=== PATIENT | male | born 1995 | race Caucasian/White ===

== ENCOUNTER 2018-11-16 17:05 | Inpatient (IN) | payer MEDICAID, OTHER ==
--- NOTE | 2018-11-16 17:59 | ED ---
Psych HPI - General Chief Complaint: Psychiatric Symptoms Stated Complaint: Mental Health, petition Time Seen by Provider: 11/16/18 17:17 Source: patient Mode of arrival: ambulatory - History of Present Illness Initial Comments: 22-year-old male patient presents to the emergency department today for evaluation of depression and suicidal ideation. Patient states that over the last 2 weeks he has had an increase in suicidal thoughts. Patient has reported feelings of either crashing his car or shooting himself with his grandfather's gun. Patient states that he feels that he has ruined his life. States he is unemployed, has no money, and is not getting an education. Patient states that he was attending [employer] at one time, felt that he was hearing the "voice of God ". Patient then started to become concerned that he may have schizophrenia and that the voices he was hearing had been a lie. States that he came very disillusioned with the synagogue and stopped going. Patient states he did attempt to return however it wasn't the same as it had been in the past. Patient states he's been taking Adderall for several years. Patient believes that he started taking it under false pretenses influenced by his mother, states that he feels very guilty over the decision to start taking. He now feels that he cannot stop taking the medication due to addiction. Patient states that he has made many bad decisions in his life and is making him very depressed. He feels there is no hope to turn his life around. He denies any other street drug use. Denies any alcohol use. Denies any current physical symptoms or concerns. States that he did cut his arm and take 15 Tylenol about a week ago, in order to determine if he was capable of harming himself. Patient denies any official diagnosis of depression. Has never had an inpatient mental health admission in the past. Did speak to someone to set up counseling today, but due to a misunderstanding the police were sent to his home for a well check and brought him here for further evaluation. - Related Data Home Medications Medication Instructions Recorded Confirmed Atomoxetine HCl [Strattera] 40 mg PO DAILY 11/16/18 11/16/18 Sertraline [Zoloft] 50 mg PO DAILY 11/16/18 11/16/18 Allergies Allergy/AdvReac Type Severity Reaction Status Date / Time No Known Allergies Allergy Verified 11/16/18 18:49 Review of Systems ROS Statement: Those systems with pertinent positive or pertinent negative responses have been documented in the HPI. ROS Other: All systems not noted in ROS Statement are negative. Past Medical History Past Medical History: No Reported History History of Any Multi-Drug Resistant Organisms: None Reported Additional Past Surgical History / Comment(s): cervical cyst removal Past Psychological History: ADD/ADHD, Depression Smoking Status: Current every day smoker Past Alcohol Use History: None Reported Past Drug Use History: Marijuana General Exam Limitations: no limitations General appearance: alert, in no apparent distress, other (Physical well- developed, well-nourished adult male patient in no acute distress. Vital signs upon presentation are temperature 98.2F, pulse 99, respirations 18, blood pressure 133/79, pulse ox 99% on room air.) Eye exam: Present: normal appearance, PERRL, EOMI. Absent: scleral icterus, conjunctival injection, periorbital swelling Respiratory exam: Present: normal lung sounds bilaterally. Absent: respiratory distress, wheezes, rales, rhonchi, stridor Cardiovascular Exam: Present: regular rate, normal rhythm, normal heart sounds. Absent: systolic murmur, diastolic murmur, rubs, gallop, clicks Neurological exam: Present: alert, oriented X3, CN II-XII intact Psychiatric exam: Present: depressed, anxious, suicidal ideation, other (Tearful ). Absent: homicidal ideation Skin exam: Present: warm, dry, intact, normal color. Absent: rash Course Vital Signs 11/16/18 17:07 Temperature 98.2 F Pulse Rate 99 Respiratory 18 Rate Blood Pressure 133/79 O2 Sat by Pulse 99 Oximetry Medical Decision Making - Medical Decision Making 22-year-old male patient presents to the emergency department today for evaluation of increased depression, suicidal ideation, hearing voices. Physical examination is unremarkable. Patient was seen and evaluated by emergency psychiatric services. It is felt that he would benefit from inpatient admission at this time. Did sign in voluntarily. He'll be transferred to the mental health unit. - Lab Data Lab Results 11/16/18 Range/Units 18:30 Urine Opiates Screen Not Detected (NotDetected) Ur Oxycodone Screen Not Detected (NotDetected) Urine Methadone Screen Not Detected (NotDetected) Ur Propoxyphene Screen Not Detected (NotDetected) Ur Barbiturates Screen Not Detected (NotDetected) U Tricyclic Antidepress Not Detected (NotDetected) Ur Phencyclidine Scrn Not Detected (NotDetected) Ur Amphetamines Screen Detected H (NotDetected) U Methamphetamines Scrn Not Detected (NotDetected) U Benzodiazepines Scrn Not Detected (NotDetected) Urine Cocaine Screen Not Detected (NotDetected) U Marijuana (THC) Screen Detected H (NotDetected) Disposition Clinical Impression: Suicidal ideation, Depression Disposition: TRANSFER TO PSYCH HOSP/UNIT Condition: Serious Referrals: Ihsan Pederson PAC [REFERRING] - 1-2 days - Out of Hospital Transfer - Req. Specs Out of Hospital Transfer - Requested Specifics: Psychiatric Non-ICU ([facility])
[2018-11-16 18:53] LABS: Amphetamine Screen,Urine Detected (NotDetected); Barbiturate Screen,Urine Not Detected (NotDetected); Benzodiazepines Screen,Urine Not Detected (NotDetected); Cocaine Screen,Urine Not Detected (NotDetected); Methadone Screen, Urine Not Detected (NotDetected); Opiate Screen,Urine Not Detected (NotDetected); Oxycodone Screen, Urine Not Detected (NotDetected); Phencyclidine Screen,Urine Not Detected (NotDetected); Tricyclic Antidepressant,Urine Not Detected (NotDetected); Urn Cannabinoid Scrn Detected (NotDetected)
[2018-11-16] MEDS ORDERED: MAGNESIUM HYDROXIDE 2,400 MG/10 ML CUP PO PRN (21:01)
[2018-11-16] MEDS ORDERED: MAG HYDROX/AL HYDROX/SIMETH 30 ML CUP PO PRN (21:01)
[2018-11-16] MEDS ORDERED: ZIPRASIDONE 20 MG VIAL IM PRN (21:01)
[2018-11-16] MEDS ORDERED: ACETAMINOPHEN TAB 325 MG TAB PO PRN (21:01)
[2018-11-16] MEDS ORDERED: LORazepam 1 MG TAB PO PRN (21:01)
[2018-11-16] MEDS ORDERED: LORazepam 2 MG/ML INJ IM PRN (21:06)
[2018-11-16] MEDS: NICOTINE 7MG/24HR PATCH TRANSDERM SCH (21:16)
--- NOTE | 2018-11-17 07:00 | P.MDCNMH ---
History of Present Illness H&P Date: 11/17/18 Chief Complaint: suicidal ideation 22-year-old male with no significant past medical history except for depression Patient was brought to the hospital due to suicidal ideation and overwhelming depression. He admits that he feels his life is miserable, as he has no money no job and feels that he has no future. He's been expressing suicidal ideation thinking he might be able to crash her car while driving or using his grandfather's gun. He has also attempted to cut himself few days ago over the left forearm. Otherwise he currently denies any physical complaints denies any chest pain or trouble breathing denies any fevers or chills or coughing denies any abdominal pain nausea or vomiting Review of Systems Pertinent positives as noted in HPI. All other systems were reviewed and are negative Past Medical History Past Medical History: No Reported History History of Any Multi-Drug Resistant Organisms: None Reported Additional Past Surgical History / Comment(s): cervical cyst removal Past Psychological History: ADD/ADHD, Depression Smoking Status: Current every day smoker Past Alcohol Use History: None Reported Past Drug Use History: Marijuana Medications and Allergies Home Medications Medication Instructions Recorded Confirmed Type Atomoxetine HCl [Strattera] 40 mg PO DAILY 11/16/18 11/16/18 History Sertraline [Zoloft] 50 mg PO DAILY 11/16/18 11/16/18 History Allergies Allergy/AdvReac Type Severity Reaction Status Date / Time No Known Allergies Allergy Verified 11/16/18 18:49 Physical Exam Vitals: Vital Signs Temp Pulse Pulse Resp BP BP Pulse Ox 11/17/18 06:42 97.6 F 62 16 111/59 11/16/18 21:10 97.6 F 75 16 134/66 11/16/18 20:34 96.9 F L 66 18 134/85 99 11/16/18 17:07 98.2 F 99 18 133/79 99 Intake and Output 11/16/18 11/16/18 11/17/18 14:59 22:59 06:59 Other: Weight 57.5 kg Constitutional: No acute distress, conversant, pleasant Eyes: Anicteric sclerae, moist conjunctiva, no lid-lag Pupils equal round reactive to light ENMT: NC/AT Oropharynx clear, no erythema, or exudates Neck: Supple, FROM, no masses, or JVD No carotid bruits No thyromegaly Lungs: Clear to auscultation Clear to percussion Normal respiratory effort, no accessory muscle use Cardiovascular: Heart regular in rate and rhythm, No murmurs, gallops, or rubs No peripheral edema Abdominal: Soft Nontender, no guarding, rebound or rigidity Abdomen moving with respiration Normoactive bowel sounds No hepatomegaly, No splenomegaly No palpable mass No abdominal wall hernia noted Skin: Superficial abrasions over the left forearm no induration, minimal erythema surrounding it no drainage. Normal temperature, tone, texture, turgor No induration No subcutaneous nodules No rash, lesions No ulcers Extremities: No digital cyanosis No clubbing Pedal pulses intact and symmetrical Radial pulses intact and symmetrical No calf tenderness Psychiatric: Alert and oriented to person, place and time Depressed affect Poor judgement Neuro Muscles Strength 5/5 in all 4 extremities Sensation to light touch grossly present throughout Cranial nerves II-XII grossly intact No focal sensory deficits Lymphatics: no palpable cervical or supraclavicular , or inguinal lymph nodes Cranial Nerve Examination - Cranial Nerves Cranial Nerve II- Optic: Intact Cranial Nerve III- Oculomotor: Intact Cranial Nerve IV- Trochlear: Intact Cranial Nerve V- Trigeminal: Intact Cranial Nerve - Abducens: Intact Cranial Nerve VII- Facial: Intact Cranial Nerve VIII- Auditory: Intact Cranial Nerve IX- Glossopharyngeal: Intact Cranial Nerve X- Vagus: Intact Cranial Nerve XI- Accessory: Intact Cranial Nerve XII- Hypoglossal: Intact Results Labs: Abnormal Lab Results - Last 24 Hours (Table) 11/16/18 Range/Units 18:30 Ur Amphetamines Screen Detected H (NotDetected) U Marijuana (THC) Screen Detected H (NotDetected) Assessment and Plan Assessment: 22-year-old male was brought to the hospital due to suicidal ideation medicine consulted for medical management currently has no physical complaints. Plan: Suicidal ideation Depression Suicide precautions Management per psych Tobacco smoking Counseled to quit smoking Nicotine replacement therapy Patient low risk for DVT, patient is ambulatory Thank you for allowing us to participate in the care of this patient. We will follow peripherally. Do not hesitate to contact us with questions. Someone can be reached from the [facility] hospitalist group at all hours of the day at [phone].
[2018-11-17 08:52] LABS: Basophils # (A) 0.1 k/uL (0-0.2); Basophils % (A) 1 %; Eosinophils # (A) 0.2 k/uL (0-0.7); Eosinophils % (A) 3 %; Lymphocytes % (A) 49 %; MCH 30.7 pg (25.0-35.0); MCHC 33.3 g/dL (31.0-37.0); MCV 92.1 fL (80.0-100.0); Mean Platelet Volume 6.9; Monocytes # (A) 0.4 k/uL (0-1.0); Monocytes % (A) 7 %; Neutrophils # (A) 2.3 k/uL (1.3-7.7); Neutrophils % (A) 37 %; Platelet Count 258 k/uL (150-450); RBC 4.88 m/uL (4.30-5.90); WBC 6.2 k/uL (3.8-10.6)
[2018-11-17] MEDS: NICOTINE 7MG/24HR PATCH TRANSDERM SCH (09:01)
[2018-11-17 09:39] VITALS: BMI 18.7
[2018-11-17 09:40] LABS: ALT 32 U/L (21-72); AST 24 U/L (17-59); Albumin 4.3 g/dL (3.5-5.0); Alkaline Phosphatase 52 U/L (38-126); Anion Gap 8 mmol/L; Bilirubin, Delta 0.3 mg/dL (0.0-0.2); Bilirubin,Unconjugated 3.2 mg/dL (0.0-1.1); Blood Urea Nitrogen 11 mg/dL (9-20); Calcium 10.1 mg/dL (8.4-10.2); Carbon Dioxide 28 mmol/L (22-30); Chloride 105 mmol/L (98-107); Cholesterol 130 mg/dL (<200); Glucose 87 mg/dL (74-99); HDL Cholesterol 50 mg/dL (40-60); LDL Cholesterol,Calculated 73 mg/dL (0-99); Potassium 4.4 mmol/L (3.5-5.1); Sodium 141 mmol/L (137-145); Total Bilirubin 3.5 mg/dL (0.2-1.3); Total Protein 7.1 g/dL (6.3-8.2); Triglycerides 33 mg/dL (<150)
--- NOTE | 2018-11-17 13:35 | P.HP ---
Psychiatric H&P - . H&P Date: 11/17/18 History & Physical: Allergies Allergy/AdvReac Type Severity Reaction Status Date / Time No Known Allergies Allergy Verified 11/16/18 18:49 Vital Signs Temp 97.6 F 11/17/18 06:42 Pulse 62 11/17/18 06:42 Resp 16 11/17/18 06:42 BP 111/59 11/17/18 06:42 Pulse Ox 99 11/16/18 20:34 Intake & Output 11/16/18 11/17/18 11/17/18 18:59 06:59 18:59 Weight 131.3 kg 57.5 kg Laboratory Last Values WBC 6.2 k/uL (3.8-10.6) 11/17/18 08:13 RBC 4.88 m/uL (4.30-5.90) 11/17/18 08:13 Hgb 15.0 gm/dL (13.0-17.5) 11/17/18 08:13 Hct 45.0 % (39.0-53.0) 11/17/18 08:13 MCV 92.1 fL (80.0-100.0) 11/17/18 08:13 MCH 30.7 pg (25.0-35.0) 11/17/18 08:13 MCHC 33.3 g/dL (31.0-37.0) 11/17/18 08:13 RDW 12.0 % (11.5-15.5) 11/17/18 08:13 Plt Count 258 k/uL (150-450) 11/17/18 08:13 Neutrophils % 37 % 11/17/18 08:13 Lymphocytes % 49 % 11/17/18 08:13 Monocytes % 7 % 11/17/18 08:13 Eosinophils % 3 % 11/17/18 08:13 Basophils % 1 % 11/17/18 08:13 Neutrophils # 2.3 k/uL (1.3-7.7) 11/17/18 08:13 Lymphocytes # 3.0 k/uL (1.0-4.8) 11/17/18 08:13 Monocytes # 0.4 k/uL (0-1.0) 11/17/18 08:13 Eosinophils # 0.2 k/uL (0-0.7) 11/17/18 08:13 Basophils # 0.1 k/uL (0-0.2) 11/17/18 08:13 Urine Opiates Screen Not Detected (NotDetected) 11/16/18 18:30 Ur Oxycodone Screen Not Detected (NotDetected) 11/16/18 18:30 Urine Methadone Screen Not Detected (NotDetected) 11/16/18 18:30 Ur Propoxyphene Screen Not Detected (NotDetected) 11/16/18 18:30 Ur Barbiturates Screen Not Detected (NotDetected) 11/16/18 18:30 U Tricyclic Antidepress Not Detected (NotDetected) 11/16/18 18:30 Ur Phencyclidine Scrn Not Detected (NotDetected) 11/16/18 18:30 Ur Amphetamines Screen Detected (NotDetected) H 11/16/18 18:30 U Methamphetamines Scrn Not Detected (NotDetected) 11/16/18 18:30 U Benzodiazepines Scrn Not Detected (NotDetected) 11/16/18 18:30 Urine Cocaine Screen Not Detected (NotDetected) 11/16/18 18:30 U Marijuana (THC) Screen Detected (NotDetected) H 11/16/18 18:30 Assessment and Plan Assessment: 22-year-old male patient presents to the emergency department today for evaluation of depression and suicidal ideation. Patient states that over the last 2 weeks he has had an increase in suicidal thoughts. Patient has reported feelings of either crashing his car or shooting himself with his grandfather's gun. Patient states that he feels that he has ruined his life. States he is unemployed, has no money, and is not getting an education. Patient states that he was attending [employer] at one time, felt that he was hearing the "voice of God ". Patient then started to become concerned that he may have schizophrenia and that the voices he was hearing had been a lie. States that he came very disillusioned with the [employer] and stopped going. Patient states he did attempt to return however it wasn't the same as it had been in the past. Patient states he's been taking Adderall for several years. Patient believes that he started taking it under false pretenses influenced by his mother, states that he feels very guilty over the decision to start taking. He now feels that he cannot stop taking the medication due to addiction. Patient states that he has made many bad decisions in his life and is making him very depressed. He feels there is no hope to turn his life around. He denies any other street drug use. Denies any alcohol use. Denies any current physical symptoms or concerns. States that he did cut his arm and take 15 Tylenol about a week ago, in order to determine if he was capable of harming himself. Patient denies any official diagnosis of depression. Has never had an inpatient mental health admission in the past. Did speak to someone to set up counseling today, but due to a misunderstanding the police were sent to his home for a well check and brought him here for further evaluation. - Related Data Home Medications Medication Instructions Recorded Confirmed Atomoxetine HCl [Strattera] 40 mg PO DAILY 11/16/18 11/16/18 Sertraline [Zoloft] 50 mg PO DAILY 11/16/18 11/16/18 Allergies Allergy/AdvReac Type Severity Reaction Status Date / Time No Known Allergies Allergy Verified 11/16/18 18:49 Past Medical History Past Medical History: No Reported History History of Any Multi-Drug Resistant Organisms: None Reported Additional Past Surgical History / Comment(s): cervical cyst removal Past Psychological History: ADD/ADHD, Depression Smoking Status: Current every day smoker Past Alcohol Use History: None Reported Past Drug Use History: Marijuana Developmental history and substance abuse: This is a 22-year-old single male who was raised mainly by his mother after divorce and father who is a chiropractor had a TBI after car accident and at age 4 mother and father . His father moved to [facility] for employment and the patient was mainly raised by mother and older brother with grandparents being involved due to lack of income. His mother had taken her 's medication became addicted to narcotics and end up in substance abuse treatment. There is little nurturing occurring in this man's life. He feels abandonment by his father and loss of nurturing. He states his older brother is caustic at times and tends to isolate himself. His mother was concerned about him on 11/16/2018 and had called various places for help whereupon he admitted that he had suicidal ideation. When the help line callback to talk to him he did not answer the phone twice and the police were called to bring him in for psychiatric evaluation. His brother and himself uses marijuana on a regular routine but does not enjoy. At 10th grade he was able to do home schooling via the high school program computer system and when he returned to school in the 11th grade at a [employer] more credit hours catching up to be an 11th grader. He had to do some alternative education to be able to graduate. He has attended upon community college and end up not doing well in dropping out. Of recent past he has moved into a friend's home renting a room whereby defended himself in the interview and altercation and at the same time his mother called him and told him that grandfather would have to go back to work as an have enough money. 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 He feels overwhelmed and hopeless helpless and confused about what path to take an life since she's had no role modeling. It appears that mother made him a codependent. He does smoke cigarettes as well but wants to quit smoking and quit smoking marijuana. Musculoskeletal Examination - Abnormal/Involuntary Movements: [none] Strength: [greater than antigravity (greater than/equal to 3/5) in all extremities] Muscle Tone: [no impairment] Gait: [grossly normal Station: [grossly normal Mental Status Examination - General Appearance: [ casual, appears stated age Speech/Language: [ slow, hesitant, soft] Attitude/Behavior: [ guarded, withdrawn] Mood: [depressed 10 out of 10, anxious 6 out of 10, hopelessness, overwhelmed] Affect: [ flat,blunted constricted Orientation: [time, person, place situation] Thought Content: [wnl Risk Factors: [Admits to suicidal (ideations, plan), but not Homicidal ( ideations, plan), other] Perception: [wnl, denies hallucinations (auditory, visual, tactile) Thought Processes: [ concrete, circumstantial, tangential] Concentration/Attention Span: [ impaired] [Per observation and interview with the patient] Recent Memory: [wnl Remote Memory: [wnl] [past events, as related history] Intelligence: [ average] [based on history, based on vocabulary, syntax, grammar , and content] Judgement: [ fair] [per patient's behavior/history of present illness] Insight: [ fair] [understanding severity of illness/history of present illness] Admitting Diagnosis: [Major depressive disorder with suicidal ideation acute severe in nature; amphetamine use disorder] Patient Strengths - Housing stability: [x] Able to vocalize needs: [x] Motivation, determination, readiness for change: [x] Setting and pursuing goals, hopes, dreams, aspirations: [x] Patient Limitations: [ pathological/unsupported environment, lack of social supports Initial Plan of Care: [He is admitted formal voluntary for mental health treatment [facility]. He will be evaluated by medicine, psychiatry, nursing staff, social work and occupational therapy. He will be placed in [facility] therapeutic environment with usual protocol including 15 minute checks for safety. He'll be expected to speak groups which he is already done. A thorough biopsychosocial evaluation be completed and as outlined above several factors including nurture nature and has been discovered. He will be placed on Effexor 37.5 mgXR and Lamictal 25 mg by mouth daily at bedtime due to the fact that he does have racing thoughts and mood instability. We discussed the benefit registration of medications and the benefit of being in PSYCHOTHERAPEUTIC [facility] environment.] Estimated Length of Stay: [7 days] Initial Discharge Plan: [home[facility], referred to therapist, partial hospital, intensive outpatient, residential placement, other] Prognosis: [good, fair, guarded] Justification for Inpatient Hospitalization - [ anxiety, depression resulting in significant loss of functioning.] [Dangerous to self with need for controlled environment.] [Emotional or behavioral conditions and complications requiring 24 hour medical and nursing care.] [Need for special drug therapy, or other therapeutic program requiring continuous hospitalization.] [Failure of social or occupational functioning.] [Recovery environment includes detrimental family structure, logical impediments to out-patient treatment.] (1) Major depressive disorder with current active episode Current Visit: Yes Status: Acute Priority: High Code(s): F32.9 - MAJOR DEPRESSIVE DISORDER, SINGLE EPISODE, UNSPECIFIED SNOMED Code(s): 786032220 Time with Patient: Greater than 30
[2018-11-17 18:56] LABS: Hemoglobin A1C 4.9 % (4.0-6.0)
[2018-11-17] MEDS ORDERED: lamoTRIgine 25 MG TAB PO SCH (21:00)
[2018-11-17] MEDS ORDERED: VENLAFAXINE HCL ER 37.5 MG CAP PO SCH (21:00)
[2018-11-18] MEDS: NICOTINE 7MG/24HR PATCH TRANSDERM SCH (08:12)
--- NOTE | 2018-11-18 12:42 | P.PN ---
Subjective Progress Note Date: 11/18/18 Principal diagnosis: Major depressive disorder with suicidal ideation acutesevere in nature Chart reviewed and discussed with nursing staff and team this morning. Patient was interviewed and office and described that he slept last night better than he has before that he has less suicidal thoughts but his depression is still 7 out of 10 with anxiety 5 out of 10. He is heard no voices nor has he seen anything. He has no homicidal ideation. Objective - Vital Signs Vital signs: Vital Signs Temp 98 F 11/18/18 06:46 Pulse 55 L 11/18/18 06:46 Resp 16 11/18/18 06:46 BP 107/55 11/18/18 06:46 Pulse Ox 99 11/16/18 20:34 Intake & Output 11/17/18 11/18/18 11/18/18 18:59 06:59 18:59 Weight 57.8 kg - Labs CBC & Chem 7: 11/17/18 08:13 11/17/18 08:13 Assessment and Plan Assessment: 22-year-old male patient presents to the emergency department today for evaluation of depression and suicidal ideation. Patient states that over the last 2 weeks he has had an increase in suicidal thoughts. Patient has reported feelings of either crashing his car or shooting himself with his grandfather's gun. Patient states that he feels that he has ruined his life. States he is unemployed, has no money, and is not getting an education. Patient states that he was attending jainism at one time, felt that he was hearing the "voice of God ". Patient then started to become concerned that he may have schizophrenia and that the voices he was hearing had been a lie. States that he came very disillusioned with the jainism and stopped going. Patient states he did attempt to return however it wasn't the same as it had been in the past. Patient states he's been taking Adderall for several years. Patient believes that he started taking it under false pretenses influenced by his mother, states that he feels very guilty over the decision to start taking. He now feels that he cannot stop taking the medication due to addiction. Patient states that he has made many bad decisions in his life and is making him very depressed. He feels there is no hope to turn his life around. He denies any other street drug use. Denies any alcohol use. Denies any current physical symptoms or concerns. States that he did cut his arm and take 15 Tylenol about a week ago, in order to determine if he was capable of harming himself. Patient denies any official diagnosis of depression. Has never had an inpatient mental health admission in the past. Did speak to someone to set up counseling today, but due to a misunderstanding the police were sent to his home for a well check and brought him here for further evaluation. Developmental history and substance abuse: This is a 22-year-old single male who was raised mainly by his mother after divorce and father who is a chiropractor had a TBI after car accident and at age 4 mother and father . His father moved to [facility] for employment and the patient was mainly raised by mother and older brother with grandparents being involved due to lack of income. His mother had taken her 's medication became addicted to narcotics and end up in substance abuse treatment. There is little nurturing occurring in this man's life. He feels abandonment by his father and loss of nurturing. He states his older brother is caustic at times and tends to isolate himself. His mother was concerned about him on 11/16/2018 and had called various places for help whereupon he admitted that he had suicidal ideation. When the help line callback to talk to him he did not answer the phone twice and the police were called to bring him in for psychiatric evaluation. His brother and himself uses marijuana on a regular routine but does not enjoy. At 10th grade he was able to do home schooling via the high school program computer system and when he returned to school in the 11th grade at a [employer] more credit hours catching up to be an 11th grader. He had to do some alternative education to be able to graduate. He has attended upon community college and end up not doing well in dropping out. Of recent past he has moved into a friend's home renting a room whereby defended himself in the interview and altercation and at the same time his mother called him and told him that grandfather would have to go back to work as an have enough money. 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 He feels overwhelmed and hopeless helpless and confused about what path to take an life since she's had no role modeling. It appears that mother made him a codependent. He does smoke cigarettes as well but wants to quit smoking and quit smoking marijuana. Mental Status Examination - General Appearance: [ casual, appears stated age Speech/Language: [ slow, hesitant, soft] Attitude/Behavior: [ guarded, withdrawn] Mood: [depressed 7 out of 10, anxious 6 out of 10, hopelessness, overwhelmed] Affect: [ flat,blunted constricted Orientation: [time, person, place situation] Thought Content: [wnl Risk Factors: [Admits to suicidal (ideations, plan), but not Homicidal ( ideations, plan), other] Perception: [wnl, denies hallucinations (auditory, visual, tactile) Thought Processes: [ concrete, circumstantial, tangential] Concentration/Attention Span: [ impaired] [Per observation and interview with the patient] Recent Memory: [wnl Remote Memory: [wnl] [past events, as related history] Intelligence: [ average] [based on history, based on vocabulary, syntax, grammar , and content] Judgement: [ fair] [per patient's behavior/history of present illness] Insight: [ fair] [understanding severity of illness/history of present illness] Admitting Diagnosis: [Major depressive disorder with suicidal ideation acute severe in nature; amphetamine use disorder] Initial Plan of Care: [He is admitted formal voluntary for mental health treatment 3 [facility]. He will be evaluated by medicine, psychiatry, nursing staff, social work and occupational therapy. He will be placed in barrera milieu therapeutic environment with usual protocol including 15 minute checks for safety. He'll be expected to speak groups which he is already done. A thorough biopsychosocial evaluation be completed and as outlined above several factors including nurture nature and has been discovered. He will be placed on Effexor 37.5 mgXR and Lamictal 25 mg by mouth daily at bedtime due to the fact that he does have racing thoughts and mood instability. We discussed the benefit registration of medications and the benefit of being in PSYCHOTHERAPEUTIC barrera milieu environment. 11/18/2018: After discussion with him regarding his medications benefit risk ratio we talked about raising his Effexor 75 mgXR tonight and increasing his Lamictal to 50 mg by mouth daily at bedtime. He still remains on 15 minute checks for safety and usual barrera milieu therapeutic environment. He's been able to go to groups today and appears engaged in the barrera milieu therapeutic environment.] (1) Major depressive disorder with current active episode Current Visit: Yes Status: Acute Priority: High Code(s): F32.9 - MAJOR DEPRESSIVE DISORDER, SINGLE EPISODE, UNSPECIFIED SNOMED Code(s): 934925806 Time with Patient: Less than 30
[2018-11-18] MEDS ORDERED: VENLAFAXINE HCL ER 75 MG CAP PO SCH (21:00)
[2018-11-18] MEDS ORDERED: lamoTRIgine 25 MG TAB PO SCH (21:00)
[2018-11-19] MEDS: NICOTINE 7MG/24HR PATCH TRANSDERM SCH (10:18)
--- NOTE | 2018-11-19 11:45 | P.PN ---
Subjective Progress Note Date: 11/19/18 Principal diagnosis: Major depressive disorder with suicidal ideation acutesevere in nature Chart reviewed and discussed with nursing staff and team this morning. Patient was interviewed and office and described that he slept last night better than he has before that he has less suicidal thoughts but his depression is still 7 out of 10 with anxiety 5 out of 10. He is heard no voices nor has he seen anything. He has no homicidal ideation. 11/19/2018: Chart review and discussed with nursing staff today. Patient interviewed and he described his mood is improving and is learning a great deal by being in groups. He has less suicidal thoughts and his depression as 6 out of 10 with anxiety remaining 5 out of 10. He has heard no voices or has he seen anything. He has no homicidal ideation. Objective - Vital Signs Vital signs: Vital Signs Temp 97.9 F 11/19/18 06:39 Pulse 67 11/19/18 06:39 Resp 16 11/19/18 06:39 BP 124/62 11/19/18 06:39 Pulse Ox 99 11/16/18 20:34 - Labs CBC & Chem 7: 11/17/18 08:13 11/17/18 08:13 Assessment and Plan Assessment: 22-year-old male patient presents to the emergency department today for evaluation of depression and suicidal ideation. Patient states that over the last 2 weeks he has had an increase in suicidal thoughts. Patient has reported feelings of either crashing his car or shooting himself with his grandfather's gun. Patient states that he feels that he has ruined his life. States he is unemployed, has no money, and is not getting an education. Patient states that he was attending scientology at one time, felt that he was hearing the "voice of God ". Patient then started to become concerned that he may have schizophrenia and that the voices he was hearing had been a lie. States that he came very disillusioned with the scientology and stopped going. Patient states he did attempt to return however it wasn't the same as it had been in the past. Patient states he's been taking Adderall for several years. Patient believes that he started taking it under false pretenses influenced by his mother, states that he feels very guilty over the decision to start taking. He now feels that he cannot stop taking the medication due to addiction. Patient states that he has made many bad decisions in his life and is making him very depressed. He feels there is no hope to turn his life around. He denies any other street drug use. Denies any alcohol use. Denies any current physical symptoms or concerns. States that he did cut his arm and take 15 Tylenol about a week ago, in order to determine if he was capable of harming himself. Patient denies any official diagnosis of depression. Has never had an inpatient mental health admission in the past. Did speak to someone to set up counseling today, but due to a misunderstanding the police were sent to his home for a well check and brought him here for further evaluation. Developmental history and substance abuse: This is a 22-year-old single male who was raised mainly by his mother after divorce and father who is a chiropractor had a TBI after car accident and at age 4 mother and father . His father moved to [facility] for employment and the patient was mainly raised by mother and older brother with grandparents being involved due to lack of income. His mother had taken her 's medication became addicted to narcotics and end up in substance abuse treatment. There is little nurturing occurring in this man's life. He feels abandonment by his father and loss of nurturing. He states his older brother is caustic at times and tends to isolate himself. His mother was concerned about him on 11/16/2018 and had called various places for help whereupon he admitted that he had suicidal ideation. When the help line callback to talk to him he did not answer the phone twice and the police were called to bring him in for psychiatric evaluation. His brother and himself uses marijuana on a regular routine but does not enjoy. At 10th grade he was able to do home schooling via the high school program computer system and when he returned to school in the 11th grade at a [employer] more credit hours catching up to be an 11th grader. He had to do some alternative education to be able to graduate. He has attended upon community college and end up not doing well in dropping out. Of recent past he has moved into a friend's home renting a room whereby defended himself in the interview and altercation and at the same time his mother called him and told him that grandfather would have to go back to work as an have enough money. 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 He feels overwhelmed and hopeless helpless and confused about what path to take an life since she's had no role modeling. It appears that mother made him a codependent. He does smoke cigarettes as well but wants to quit smoking and quit smoking marijuana. Mental Status Examination - General Appearance: [ casual, appears stated age Speech/Language: [ slow, soft] Attitude/Behavior: [ guarded, withdrawn] Mood: [depressed 7 out of 10, anxious 6 out of 10, hopelessness, overwhelmed] Affect: [ flat,blunted constricted Orientation: [time, person, place situation] Thought Content: [wnl Risk Factors: [Admits to suicidal (ideations, plan), but not Homicidal ( ideations, plan), other] Perception: [wnl, denies hallucinations (auditory, visual, tactile) Thought Processes: [ concrete, circumstantial, tangential] Concentration/Attention Span: [ impaired] [Per observation and interview with the patient] Recent Memory: [wnl Remote Memory: [wnl] [past events, as related history] Intelligence: [ average] [based on history, based on vocabulary, syntax, grammar , and content] Judgement: [ fair] [per patient's behavior/history of present illness] Insight: [ fair] [understanding severity of illness/history of present illness] Admitting Diagnosis: [Major depressive disorder with suicidal ideation acute severe in nature; amphetamine use disorder] Initial Plan of Care: [He is admitted formal voluntary for mental health treatment 3 [facility]. He will be evaluated by medicine, psychiatry, nursing staff, social work and occupational therapy. He will be placed in barrera milieu therapeutic environment with usual protocol including 15 minute checks for safety. He'll be expected to speak groups which he is already done. A thorough biopsychosocial evaluation be completed and as outlined above several factors including nurture nature and has been discovered. He will be placed on Effexor 37.5 mgXR and Lamictal 25 mg by mouth daily at bedtime due to the fact that he does have racing thoughts and mood instability. We discussed the benefit registration of medications and the benefit of being in PSYCHOTHERAPEUTIC barrera milieu environment. 11/18/2018: After discussion with him regarding his medications benefit risk ratio we talked about raising his Effexor 75 mgXR tonight and increasing his Lamictal to 50 mg by mouth daily at bedtime. He still remains on 15 minute checks for safety and usual barrera milieu therapeutic environment. He's been able to go to groups today and appears engaged in the barrera milieu therapeutic environment. 11/19/2018: Will increase his Lamictal to 75 mg by mouth daily at bedtime and remain on 15 minute checks and usual barrera milieu therapeutic environment. His Effexor will be increased to 150 mgXR at bedtime will follow up and observe.] (1) Major depressive disorder with current active episode Current Visit: Yes Status: Acute Priority: High Code(s): F32.9 - MAJOR DEPRESSIVE DISORDER, SINGLE EPISODE, UNSPECIFIED SNOMED Code(s): 585033567 Time with Patient: Less than 30
[2018-11-19] MEDS: VENLAFAXINE HCL ER 150 MG CAP PO SCH (20:54)
[2018-11-19] MEDS: lamoTRIgine 25 MG TAB PO SCH (20:54)
[2018-11-20] MEDS: NICOTINE 7MG/24HR PATCH TRANSDERM SCH (08:29)
--- NOTE | 2018-11-20 12:36 | P.PN ---
Subjective Progress Note Date: 11/20/18 Principal diagnosis: Major depressive disorder with suicidal ideation acutesevere in nature Chart reviewed and discussed with nursing staff and team this morning. Patient was interviewed and office and described that he slept last night better than he has before that he has less suicidal thoughts but his depression is still 7 out of 10 with anxiety 5 out of 10. He is heard no voices nor has he seen anything. He has no homicidal ideation. 11/19/2018: Chart review and discussed with nursing staff today. Patient interviewed and he described his mood is improving and is learning a great deal by being in groups. He has less suicidal thoughts and his depression as 6 out of 10 with anxiety remaining 5 out of 10. He has heard no voices or has he seen anything. He has no homicidal ideation. 11/20/2018: Reviewed with nursing staff today and review of chart. Patient interviewed and he describes his mood getting improving with his depression 5 out of 10 and occasional thoughts of suicide. He has no thoughts of homicide. He does not hear any voices. He remains on 15 minute checks on the barrera for safety and understands why they check on him. Objective - Vital Signs Vital signs: Vital Signs Temp 98.0 F 11/20/18 06:22 Pulse 74 11/20/18 06:22 Resp 18 11/20/18 06:22 BP 117/56 11/20/18 06:22 Pulse Ox 99 11/16/18 20:34 Intake & Output 11/19/18 11/20/18 11/20/18 18:59 06:59 18:59 Weight 59.5 kg - Labs CBC & Chem 7: 11/17/18 08:13 11/17/18 08:13 Assessment and Plan Assessment: 22-year-old male patient presents to the emergency department today for evaluation of depression and suicidal ideation. Patient states that over the last 2 weeks he has had an increase in suicidal thoughts. Patient has reported feelings of either crashing his car or shooting himself with his grandfather's gun. Patient states that he feels that he has ruined his life. States he is unemployed, has no money, and is not getting an education. Patient states that he was attending orthodoxy at one time, felt that he was hearing the "voice of God ". Patient then started to become concerned that he may have schizophrenia and that the voices he was hearing had been a lie. States that he came very disillusioned with the orthodoxy and stopped going. Patient states he did attempt to return however it wasn't the same as it had been in the past. Patient states he's been taking Adderall for several years. Patient believes that he started taking it under false pretenses influenced by his mother, states that he feels very guilty over the decision to start taking. He now feels that he cannot stop taking the medication due to addiction. Patient states that he has made many bad decisions in his life and is making him very depressed. He feels there is no hope to turn his life around. He denies any other street drug use. Denies any alcohol use. Denies any current physical symptoms or concerns. States that he did cut his arm and take 15 Tylenol about a week ago, in order to determine if he was capable of harming himself. Patient denies any official diagnosis of depression. Has never had an inpatient mental health admission in the past. Did speak to someone to set up counseling today, but due to a misunderstanding the police were sent to his home for a well check and brought him here for further evaluation. Developmental history and substance abuse: This is a 22-year-old single male who was raised mainly by his mother after divorce and father who is a chiropractor had a TBI after car accident and at age 4 mother and father . His father moved to [facility] for employment and the patient was mainly raised by mother and older brother with grandparents being involved due to lack of income. His mother had taken her 's medication became addicted to narcotics and end up in substance abuse treatment. There is little nurturing occurring in this man's life. He feels abandonment by his father and loss of nurturing. He states his older brother is caustic at times and tends to isolate himself. His mother was concerned about him on 11/16/2018 and had called various places for help whereupon he admitted that he had suicidal ideation. When the help line callback to talk to him he did not answer the phone twice and the police were called to bring him in for psychiatric evaluation. His brother and himself uses marijuana on a regular routine but does not enjoy. At 10th grade he was able to do home schooling via the high school program computer system and when he returned to school in the 11th grade at a [employer] more credit hours catching up to be an 11th grader. He had to do some alternative education to be able to graduate. He has attended upon community college and end up not doing well in dropping out. Of recent past he has moved into a friend's home renting a room whereby defended himself in the interview and altercation and at the same time his mother called him and told him that grandfather would have to go back to work as an have enough money. 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 He feels overwhelmed and hopeless helpless and confused about what path to take an life since she's had no role modeling. It appears that mother made him a codependent. He does smoke cigarettes as well but wants to quit smoking and quit smoking marijuana. Mental Status Examination - General Appearance: [ casual, appears stated age Speech/Language: [ slow, soft] Attitude/Behavior: [ guarded, withdrawn] Mood: [depressed 6 out of 10, anxious 5 out of 10, hopelessness, overwhelmed] Affect: [ flat,blunted constricted Orientation: [time, person, place situation] Thought Content: [wnl Risk Factors: [Admits to last suicidal (ideations, plan), but not Homicidal ( ideations, plan), other] Perception: [wnl, denies hallucinations (auditory, visual, tactile) Thought Processes: [ concrete, circumstantial, tangential] Concentration/Attention Span: [ impaired] [Per observation and interview with the patient] Recent Memory: [wnl Remote Memory: [wnl] [past events, as related history] Intelligence: [ average] [based on history, based on vocabulary, syntax, grammar , and content] Judgement: [ fair] [per patient's behavior/history of present illness] Insight: [ fair] [understanding severity of illness/history of present illness] Admitting Diagnosis: [Major depressive disorder with suicidal ideation acute severe in nature; amphetamine use disorder] Initial Plan of Care: [He is admitted formal voluntary for mental health treatment [address] [place] [address]. He will be evaluated by medicine, psychiatry, nursing staff, social work and occupational therapy. He will be placed in barrera milieu therapeutic environment with usual protocol including 15 minute checks for safety. He'll be expected to speak groups which he is already done. A thorough biopsychosocial evaluation be completed and as outlined above several factors including nurture nature and has been discovered. He will be placed on Effexor 37.5 mgXR and Lamictal 25 mg by mouth daily at bedtime due to the fact that he does have racing thoughts and mood instability. We discussed the benefit registration of medications and the benefit of being in PSYCHOTHERAPEUTIC barrera milieu environment. 11/18/2018: After discussion with him regarding his medications benefit risk ratio we talked about raising his Effexor 75 mgXR tonight and increasing his Lamictal to 50 mg by mouth daily at bedtime. He still remains on 15 minute checks for safety and usual barrera milieu therapeutic environment. He's been able to go to groups today and appears engaged in the barrera milieu therapeutic environment. 11/19/2018: Will increase his Lamictal to 75 mg by mouth daily at bedtime and remain on 15 minute checks and usual barrera milieu therapeutic environment. His Effexor will be increased to 150 mgXR at bedtime will follow up and observe. 11/20/2018: Will increase his Lamictal 200 mg by mouth daily at bedtime tonight and remains on 15 minute checks and usual therapeutic barrera environment. His Effexor will state 150 mg XR tonight and we'll reevaluate his depression tomorrow for titration to resolution of his symptoms.] (1) Major depressive disorder with current active episode Current Visit: Yes Status: Acute Priority: High Code(s): F32.9 - MAJOR DEPRESSIVE DISORDER, SINGLE EPISODE, UNSPECIFIED SNOMED Code(s): 766734908 Time with Patient: Less than 30
[2018-11-20 12:39] LABS: Amorphous Sediment,Urine Moderate /hpf; Appearance,Urine Cloudy (Clear); Bilirubin,Urine Negative (Negative); Blood,Urine Negative (Negative); Color,Urine Yellow; Glucose,Urine (UA) Negative (Negative); Ketones,Urine Negative (Negative); Leukocyte Esterase,Urine Negative (Negative); Mucus,Urine Rare /hpf; Nitrite,Urine Negative (Negative); Protein,Urine Negative (Negative); Specific Gravity,Urine 1.013 (1.001-1.035); Urobilinogen,Urine <2.0 mg/dL (<2.0)
[2018-11-20] MEDS: lamoTRIgine 25 MG TAB PO SCH (20:15)
[2018-11-20] MEDS: VENLAFAXINE HCL ER 150 MG CAP PO SCH (20:16)
[2018-11-21 06:43] VITALS: BP 108/57; PULSE 67; RESP 14; TEMP 98.1
[2018-11-21] MEDS: NICOTINE 7MG/24HR PATCH TRANSDERM SCH (09:52)
--- NOTE | 2018-11-21 13:19 | P.DS ---
Providers Date of admission: 11/16/18 20:14 Expected date of discharge: 11/21/18 Attending physician: Satish Maier DO Consults: 11/16/18 21:01 Consult Physician Routine Consulting Provider: Kailey Badillo Consult Reason/Comments: H & P and medical care Do you want consulting provider notified?: Yes Primary care physician: Steff Patel - Discharge Diagnosis(es) (1) Major depressive disorder with current active episode Assessment: 22-year-old male patient presents to the emergency department today for evaluation of depression and suicidal ideation. Patient states that over the last 2 weeks he has had an increase in suicidal thoughts. Patient has reported feelings of either crashing his car or shooting himself with his grandfather's gun. Patient states that he feels that he has ruined his life. States he is unemployed, has no money, and is not getting an education. Patient states that he was attending [employer] at one time, felt that he was hearing the "voice of God ". Patient then started to become concerned that he may have schizophrenia and that the voices he was hearing had been a lie. States that he came very disillusioned with the [employer] and stopped going. Patient states he did attempt to return however it wasn't the same as it had been in the past. Patient states he's been taking Adderall for several years. Patient believes that he started taking it under false pretenses influenced by his mother, states that he feels very guilty over the decision to start taking. He now feels that he cannot stop taking the medication due to addiction. Patient states that he has made many bad decisions in his life and is making him very depressed. He feels there is no hope to turn his life around. He denies any other street drug use. Denies any alcohol use. Denies any current physical symptoms or concerns. States that he did cut his arm and take 15 Tylenol about a week ago, in order to determine if he was capable of harming himself. Patient denies any official diagnosis of depression. Has never had an inpatient mental health admission in the past. Did speak to someone to set up counseling today, but due to a misunderstanding the police were sent to his home for a well check and brought him here for further evaluation. - Related Data Home Medications Medication Instructions Recorded Confirmed Atomoxetine HCl [Strattera] 40 mg PO DAILY 11/16/18 11/16/18 Sertraline [Zoloft] 50 mg PO DAILY 11/16/18 11/16/18 Allergies Allergy/AdvReac Type Severity Reaction Status Date / Time No Known Allergies Allergy Verified 11/16/18 18:49 Past Medical History Past Medical History: No Reported History History of Any Multi-Drug Resistant Organisms: None Reported Additional Past Surgical History / Comment(s): cervical cyst removal Past Psychological History: ADD/ADHD, Depression Smoking Status: Current every day smoker Past Alcohol Use History: None Reported Past Drug Use History: Marijuana Developmental history and substance abuse: This is a 22-year-old single male who was raised mainly by his mother after divorce and father who is a chiropractor had a TBI after car accident and at age 4 mother and father . His father moved to [facility] for employment and the patient was mainly raised by mother and older brother with grandparents being involved due to lack of income. His mother had taken her 's medication became addicted to narcotics and end up in substance abuse treatment. There is little nurturing occurring in this man's life. He feels abandonment by his father and loss of nurturing. He states his older brother is caustic at times and tends to isolate himself. His mother was concerned about him on 11/16/2018 and had called various places for help whereupon he admitted that he had suicidal ideation. When the help line callback to talk to him he did not answer the phone twice and the police were called to bring him in for psychiatric evaluation. His brother and himself uses marijuana on a regular routine but does not enjoy. At 10th grade he was able to do home schooling via the high school program computer system and when he returned to school in the 11th grade at a [employer] more credit hours catching up to be an 11th grader. He had to do some alternative education to be able to graduate. He has attended upon community college and end up not doing well in dropping out. Of recent past he has moved into a friend's home renting a room whereby defended himself in the interview and altercation and at the same time his mother called him and told him that grandfather would have to go back to work as an have enough money. 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 He feels overwhelmed and hopeless helpless and confused about what path to take an life since she's had no role modeling. It appears that mother made him a codependent. He does smoke cigarettes as well but wants to quit smoking and quit smoking marijuana. Current Visit: Yes Status: Acute Priority: Low Hospital Course: Plan of Care: [He is admitted formal voluntary for mental health treatment [facility]. He will be evaluated by medicine, psychiatry, nursing staff, social work and occupational therapy. He will be placed in [facility] milieu therapeutic environment with usual protocol including 15 minute checks for safety. He'll be expected to speak groups which he is already done. A thorough biopsychosocial evaluation be completed and as outlined above several factors including nurture nature and has been discovered. He will be placed on Effexor 37.5 mgXR and Lamictal 25 mg by mouth daily at bedtime due to the fact that he does have racing thoughts and mood instability. We discussed the benefit registration of medications and the benefit of being in PSYCHOTHERAPEUTIC bar[facility] milieu environment. 11/18/2018: After discussion with him regarding his medications benefit risk ratio we talked about raising his Effexor 75 mgXR tonight and increasing his Lamictal to 50 mg by mouth daily at bedtime. He still remains on 15 minute checks for safety and usual [facility] milieu therapeutic environment. He's been able to go to groups today and appears engaged in the [facility] milieu therapeutic environment. 11/19/2018: Will increase his Lamictal to 75 mg by mouth daily at bedtime and remain on 15 minute checks and usual barrera milieu therapeutic environment. His Effexor will be increased to 150 mgXR at bedtime will follow up and observe. 11/20/2018: Will increase his Lamictal 200 mg by mouth daily at bedtime tonight and remains on 15 minute checks and usual therapeutic barrera environment. His Effexor will state 150 mg XR tonight and we'll reevaluate his depression tomorrow for titration to resolution of his symptoms.] Mental status examination time of discharge: The patient presents alert, pleasant, and cooperative. There calmly seated without any agitated behavior. [He] reports that [his] mood is good. Affect is congruent and euthymic. [He] deny having any suicidal or homicidal ideation intent or plan. [He] denies any auditory or visual hallucinations. There is no evidence of any delusional thought content. [His] thought process is linear and goal-directed. [His] speech is fluent and nonpressured. [His] memory and concentration is grossly intact for the purposes of this session. Patient Condition at Discharge: Stable Plan - Discharge Summary Discharge Rx Participant: Yes New Discharge Prescriptions: New lamoTRIgine [LaMICtal] 100 mg PO 2100 30 Days #30 tab Venlafaxine HCl ER [Effexor XR] 150 mg PO 2099 30 Days #30 cap.er.24h Discontinued Sertraline [Zoloft] 50 mg PO DAILY Atomoxetine HCl [Strattera] 40 mg PO DAILY Discharge Medication List Venlafaxine HCl ER [Effexor XR] 150 mg PO 2099 30 Days #30 cap.er.24h 11/21/18 [ Rx] lamoTRIgine [LaMICtal] 100 mg PO 2100 30 Days #30 tab 11/21/18 [Rx] Follow up Appointment(s)/Referral(s): [facility] [place] [Outside] - 11/23/18 9:00 am (11/23/18 at [address] ) Ihsan Pederson PAC [REFERRING] - 1-2 days Patient Instructions/Handouts: How to Stop Smoking (GEN) Activity/Diet/Wound Care/Special Instructions: Keep your follow up appointments as scheduled. Continue taking your medications as prescribed. When you need refills on your medications contact your psychiatrist or primary care physician. No access to guns or weapons. Do not drink alcohol or use street drugs. Crisis line if needed . Discharge Disposition: HOME SELF-CARE
== END 2018-11-21 13:57 | disposition home or self-care (01) | DRG 885 ==
LOC: EC 17:05 → 3MHU 20:14
PROVIDERS: ADMIT Psychiatry & Neurology Psychiatry; ATTEND Psychiatry & Neurology Psychiatry
DX: F32.2 Major depressive disorder, single episode, severe without psychotic features (principal); R45.851 Suicidal ideations; F17.210 Nicotine dependence, cigarettes, uncomplicated; F41.9 Anxiety disorder, unspecified; F90.9 Attention-deficit hyperactivity disorder, unspecified type; Z79.899 Other long term (current) drug therapy
CPT/HCPCS: 51798; 80053; 80061; 80306; 81001; 82248; 83036; 84443; 85025; 99285

== ENCOUNTER 2019-12-13 03:13 | Emergency (ER) | payer OTHER ==
[2019-12-13] MEDS ORDERED: SODIUM CHLORIDE 0.9% 1,000 ML IV STA (03:20)
[2019-12-13] MEDS ORDERED: LORazepam 2 MG/ML INJ IV STA (03:20)
[2019-12-13 03:23] VITALS: RESP 18; TEMP 98
--- NOTE | 2019-12-13 03:23 | ED ---
General Adult HPI - General Stated complaint: Anxiety Time Seen by Provider: 12/13/19 03:20 - History of Present Illness Initial comments: Dictation was produced using [employer] dictation software. please excuse any grammatical, word or spelling errors. Chief Complaint: 24-year-old male presents with depression. History of Present Illness: 24-year-old male who called EMS because he has been depressed. Patient states he is feeling anxious. He states he is anxiety has been progressing over the last couple hours. He states he is already 24 is old and does a lot he wants to do with his life however he feels like he is unable to do them. Patient states he started to make himself more anxious. He did take some Adderall. Patient has a history of suicidal ideation. He has been admitted to inpatient psychiatry before. The ROS documented in this emergency department record has been reviewed and confirmed by me. Those systems with pertinent positive or negative responses have been documented in the HPI. All other systems are other negative and/or noncontributory. PHYSICAL EXAM: General Impression: Alert and oriented x3, anxious, tremulous HEENT: Normocephalic atraumatic, extra-ocular movements intact, pupils equal and reactive to light bilaterally, mucous membranes moist. Cardiovascular: Heart regular rate and rhythm, S1&S2 audible, no murmurs, rubs or gallops Chest: Lungs clear to auscultation bilaterally, no rhonchi, no wheeze, no rales Abdomen: Bowel sounds present, abdomen soft, non-tender, non-distended, no or ganomegaly Musculoskeletal: Pulses present and equal in all extremities, no peripheral edema Motor: no focal deficits noted Neurological: CN II-XII grossly intact, no focal motor or sensory deficits noted, no clonus Skin: Intact with no visualized rashes Psych: Anxious, tearful ED course: 24-year-old male presents with anxiety reaction. Symptoms are likely is exacerbated by recent ingestion of Adderall. Patient is very anxious. He is really upset. Patient given reassurance and some counseling. He is told that he should probably get some counseling on an outpatient basis. Laboratory evaluation obtained showing no acute processes. No gap acidosis. Patient was given some Ativan to help him relax. Vital signs are improved. Patient be discharged. He is told not to take any stimulants. EKG interpretation: Ventricular rate 122, sinus tachycardia, PA interval 170, QRS 80, QTC 424. No PA prolongation, no QTC prolongation, no ST or T-wave changes noted. Overall, this EKG is unremarkable - Related Data Previous Rx's Medication Instructions Recorded Venlafaxine HCl ER [Effexor XR] 150 mg PO 2100 30 Days #30 11/21/18 cap.er.24h lamoTRIgine [LaMICtal] 100 mg PO 2100 30 Days #30 tab 11/21/18 Allergies Allergy/AdvReac Type Severity Reaction Status Date / Time No Known Allergies Allergy Verified 12/13/19 03:23 Review of Systems ROS Statement: Those systems with pertinent positive or pertinent negative responses have been documented in the HPI. ROS Other: All systems not noted in ROS Statement are negative. Past Medical History Past Medical History: No Reported History History of Any Multi-Drug Resistant Organisms: None Reported Additional Past Surgical History / Comment(s): cervical cyst removal Past Psychological History: ADD/ADHD, Depression Smoking Status: Current every day smoker Past Alcohol Use History: None Reported Past Drug Use History: Marijuana Course Vital Signs 12/13/19 12/13/19 03:15 03:52 Temperature 98 F Pulse Rate 120 H 108 H Respiratory 18 Rate Blood Pressure 151/94 O2 Sat by Pulse 98 Oximetry Medical Decision Making - Lab Data Result diagrams: 12/13/19 03:27 Lab Results 12/13/19 Range/Units 03:27 Sodium 139 (137-145) mmol/L Potassium 3.9 (3.5-5.1) mmol/L Chloride 107 (98-107) mmol/L Carbon Dioxide 22 (22-30) mmol/L Anion Gap 10 mmol/L BUN 8 L (9-20) mg/dL Creatinine 0.73 (0.66-1.25) mg/dL Est GFR (CKD-EPI)AfAm >90 (>60 ml/min/1.73 sqM) Est GFR (CKD-EPI)NonAf >90 (>60 ml/min/1.73 sqM) Glucose 97 (74-99) mg/dL Calcium 10.0 (8.4-10.2) mg/dL Disposition Clinical Impression: Acute anxiety Disposition: HOME SELF-CARE Condition: Good Instructions (If sedation given, give patient instructions): Generalized Anxiety Disorder (ED) Is patient prescribed a controlled substance at d/c from ED?: No Referrals: None,Stated [Primary Care Provider] - 1-2 days Time of Disposition: 04:00
[2019-12-13 03:50] LABS: African American GFR (CKD) >90 (>60 ml/min/1.73 sqM); Anion Gap 10 mmol/L; Blood Urea Nitrogen 8 mg/dL (9-20); Carbon Dioxide 22 mmol/L (22-30); Chloride 107 mmol/L (98-107); Glucose 97 mg/dL (74-99); Non-African American GFR(CKD) >90 (>60 ml/min/1.73 sqM); Potassium 3.9 mmol/L (3.5-5.1); Sodium 139 mmol/L (137-145)
[2019-12-13 04:19] VITALS: BP 142/82; PULSE 96
== END 2019-12-13 04:19 | disposition home or self-care (01) ==
LOC: EC 03:13
DX: F41.9 Anxiety disorder, unspecified (principal); R00.0 Tachycardia, unspecified; F17.200 Nicotine dependence, unspecified, uncomplicated
CPT/HCPCS: 36415; 93005; 80048; 99284; 96374; 96361; J2060